=== PATIENT | female | born 2000 | race Caucasian/White ===

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

== ENCOUNTER 2018-05-21 04:13 | Emergency (ER) | payer OTHER ==
[2018-05-21 04:17] VITALS: BP 123/89
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
== END 2018-05-21 05:05 | disposition home or self-care (01) ==
DX: S09.90XA Unspecified injury of head, initial encounter (principal); F10.129 Alcohol abuse with intoxication, unspecified; Y04.8XXA Assault by other bodily force, initial encounter

== ENCOUNTER 2018-05-23 02:58 | Emergency (ER) | payer OTHER ==
[2018-05-23 03:06] VITALS: BP 130/87
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
== END 2018-05-23 03:10 | disposition left against medical advice (07) ==
LOC: EDUNIT#
DX: R51 Headache (principal); F10.920 Alcohol use, unspecified with intoxication, uncomplicated; F17.200 Nicotine dependence, unspecified, uncomplicated

== ENCOUNTER 2018-08-21 21:16 | Emergency (ER) | payer SELFPAY ==
--- NOTE | 2018-08-21 21:33 | EDPHY ---
H & P Smoking Status: Current every day smoker Time Seen by Provider: 08/21/18 21:20 HPI/ROS: CHIEF COMPLAINT: Mental health hold HISTORY OF PRESENT ILLNESS: The patient presents to the emergency department on a mental health hold by police. Per report, the patient's mother talked to the patient's roommate and said that she was making suicidal threats. The patient's roommate called the police. Please common in the patient to the emergency department and are placing her on a mental health hold. Patient is upset when I spoke with her. She states she is not suicidal. She does not want to be here. She refuses to answer my questions. She denies self- harm. REVIEW OF SYSTEMS: Patient is unwilling to answer my questions and full review of systems is unable to obtain. (Kay Arita) Physical Exam: GENERAL: Tearful, in no acute distress, alert. HEENT: Eyes normal to inspection, no signs of dehydration. NECK: Normal, supple. RESPIRATORY: Clear to auscultation bilaterally, no rales, rhonchi or wheezing. CVS: Regular rate and rhythm, no rubs, murmurs, or gallops. ABDOMEN: Soft, nontender. BACK: Normal. SKIN: Normal color, no rash, warm, dry. No pallor. EXTREMITIES: Patient's left upper extremity has multiple superficial lacerations. These appear consistent with self cutting. No joint swelling. Normal lower extremities NEURO/PSYCH: Alert and oriented, slightly agitated, normal motor sensory exam. (Kay Arita) Constitutional: Initial Vital Signs Temperature (C) 36.7 C 08/21/18 21:20 Heart Rate 78 08/21/18 21:20 Respiratory Rate 17 08/21/18 21:20 Blood Pressure 119/68 08/21/18 21:20 O2 Sat (%) 97 08/21/18 21:20 O2 Delivery Mode Room Air Allergies/Adverse Reactions: No Known Allergies Allergy (Verified 05/23/18 03:06) Home Medications: Medication Instructions Recorded Prozac Oral Liquid (*) 11/30/17 VYVANSE 11/30/17 Medical Decision Making ED Course/Re-evaluation: The in the emergency department I discussed mental health hold placed by police. I explained what this meant. I requested her cooperation. The patient consented to having her wounds on her left arm clean and dressed. The patient subsequently reported that she punched a wall with her right hand. She has mild discomfort of her right hand. Hand x-ray: Please refer the dictated report. No acute disease noted. CBC is normal. Chemistry panel is unremarkable. is negative. Salicylate and acetaminophen level are negative. Patient's tox screen is positive for cocaine and THC. 2300: The patient is signed out at change of shift to Dr. Moctezuma. Pt is stable. (Kay Arita) 0500AM: Patient is sleeping no acute distress. Patient remains on M1 hold. Patient for suicidal ideation, cocaine positive. Plan for re-evaluation this morning. Signed over at [address] Mahoney. (Moe Moctezuma) Differential Diagnosis: My differential includes but is not limited to hand fracture, hand contusion, depression, suicidal ideation, soft cutting, laceration, wound infection ( Kay Arita) Other Provider: Care assumed at 6:45 a.m. For this patient on a mental health hold. She has right hand injury and positive for cocaine and THC. History of suicidal ideation. Mental health disposition pending. 1215: per Chacho from [facility] patient had a comprehensive mental health evaluation and is the recommendation of the radar tester the hold be lifted as she is not suicidal and she will be discharged with her mother. (Sourav Mahoney) - Data Points Laboratory Results: Laboratory Results 08/21/18 21:40 08/21/18 21:40 Departure - Departure Disposition: Home, Routine, Self-Care Clinical Impression: Depression Qualifiers: Depression Type: unspecified Qualified Code(s): F32.9 - Major depressive disorder, single episode, unspecified Arm laceration Qualifiers: Encounter type: initial encounter Laterality: left Qualified Code(s): S41.112A - Laceration without foreign body of left upper arm, initial encounter Hand contusion Qualifiers: Encounter type: initial encounter Laterality: right Qualified Code(s): S60.221A - Contusion of right hand, initial encounter Condition: Good Instructions: Acute Wounds (ED), Suicide Prevention (ED) Referrals: [facility],. [Clinic] - As per Instructions
[2018-08-21 22:03] LABS: PLATELET COUNT 282 10^3/uL (150-400)
[2018-08-22 12:22] VITALS: BP 112/84
== END 2018-08-22 12:22 | disposition home or self-care (01) ==
LOC: EDUNIT#
DX: S41.112A Laceration without foreign body of left upper arm, initial encounter (principal); S60.221A Contusion of right hand, initial encounter; F32.9 Major depressive disorder, single episode, unspecified; F14.90 Cocaine use, unspecified, uncomplicated; W22.8XXA Striking against or struck by other objects, initial encounter; Y92.9 Unspecified place or not applicable; Y99.9 Unspecified external cause status; Y93.9 Activity, unspecified
CPT/HCPCS: 80305; G0480